=== PATIENT | female | born 1940 | race Caucasian/White ===

== ENCOUNTER → 2018-02-04 | Outpatient (CLI) | payer MEDICARE, OTHER ==
--- NOTE | 2018-02-04 12:38 | MM ---
Reason for exam: screening (asymptomatic). Last mammogram was performed 3 years and 1 month ago. History: Patient is postmenopausal. Benign right US cyst aspiration of the right breast, June 30, 2010. 2 excisional biopsies of the left breast. Excisional biopsy of the right breast. Took estrogen for 23 years. Physical Findings: A clinical breast exam by your physician is recommended on an annual basis and results should be correlated with mammographic findings. MG Screening Mammo w CAD Bilateral CC and MLO view(s) were taken. Prior study comparison: December 21, 2014, bilateral MG screening mammo w CAD. July 21, 2013, bilateral digital screening mammo w/CAD. The breast tissue is heterogeneously dense. This may lower the sensitivity of mammography. No suspicious abnormality. Right biopsy marker noted. ASSESSMENT: Negative, BI-RAD 1 RECOMMENDATION: Routine screening mammogram of both breasts in 1 year.
--- NOTE | 2018-02-04 16:09 | BD ---
EXAMINATION TYPE: Axial Bone Density DATE OF EXAM: 02/04/2018 COMPARISON: 06/15/2003 CLINICAL HISTORY: 77-year-old female postmenopausal screening for osteoporosis Height: 62.5 IN Weight: 154 LBS FRAX RISK QUESTIONS: History of Fracture in Adulthood: YES LT WRIST AGE 73 Secondary Osteoporosis: 3. Menopause before 45: YES AGE 42 RISK FACTORS HISTORY OF: History of Wrist Fracture: YES LT WRIST When: AGE 73 Family History of Osteoporosis: YES SISTERS(2) Active: YES Diet low in dairy products/other sources of calcium: YES Postmenopausal woman: AGE 42 Take estrogen and/or progesterone medications: NOT NOW How long: AGE 41-64 MEDICATIONS: Additional Medications: KLONOPIN, ELAVIL, EXAM MEASUREMENTS: Bone mineral densitometry was performed using the Triton System. Bone mineral density as measured about the Lumbar spine is: ----- L1-L4(G/cm2): 0.980 T Score Values are as follows: ----- L2: -2.8 ----- L3: -0.9 ----- L4: -1.2 ----- L1-L4: -1.7 Bone mineral density has: Decreased -6.4% since study of: 06/15/2003 Bone mineral density about the R hip (g/cm2): 0.743 Bone mineral density about the L hip (g/cm2): 0.745 T Score values are as follows: -----R Neck: -2.1 -----L Neck: -2.1 -----R Total: -2.1 -----L Total: -1.8 Bone mineral density has: Decreased -11.2% since study of: 06/15/2003 IMPRESSION: Osteopenia (T Score between -2.5 and -1). There is slightly increased risk of fracture and the patient may be considered for treatment. Re-Screen 2-5 years. NOTE: T-SCORE=SD OF THE YOUNG ADULT MEAN.
== END | disposition home or self-care (01) ==
LOC: RADMAMWWP 07:21
PROVIDERS: ATTEND Family Medicine
DX: Z12.31 Encounter for screening mammogram for malignant neoplasm of breast (principal); M85.80 Other specified disorders of bone density and structure, unspecified site
CPT/HCPCS: 77067; 77080

== ENCOUNTER 2024-02-13 05:48 | Observation (INO) | payer MEDICARE ==
[2024-02-13 06:01] VITALS: TEMP 98.3
[2024-02-13 06:01] LABS: Glucose,Whole Blood 94 mg/dL (70-110)
[2024-02-13] MEDS: NALOXONE 0.4 MG/ML 1 ML VIAL IVP STA ×2 (06:16→08:53)
[2024-02-13 06:20] LABS: Basophils % (A) 0 %; Eosinophils # (A) 0.4 k/uL (0-0.7); Eosinophils % (A) 4 %; HCT 38.8 % (34.0-46.0); HGB 12.6 gm/dL (11.4-16.0); Lymphocytes # (A) 1.2 k/uL (1.0-4.8); Lymphocytes % (A) 11 %; MCH 33.8 pg (25.0-35.0); MCHC 32.6 g/dL (31.0-37.0); MCV 103.8 fL (80.0-100.0); Macrocytosis Slight; Mean Platelet Volume 7.2; Monocytes # (A) 0.6 k/uL (0-1.0); Monocytes % (A) 5 %; Neutrophils # (A) 8.2 k/uL (1.3-7.7); Neutrophils % (A) 78 %; Platelet Count 216 k/uL (150-450); RBC 3.74 m/uL (3.80-5.40); RDW 12.2 % (11.5-15.5); WBC 10.5 k/uL (3.8-10.6)
[2024-02-13 06:34] LABS: ALT 10 U/L (4-34); AST 21 U/L (14-36); Acetaminophen <10.0 ug/mL; African American GFR (CKD) >90 (>60 ml/min/1.73 sqM); Albumin 4.1 g/dL (3.5-5.0); Alcohol <10 mg/dL; Alkaline Phosphatase 113 U/L (38-126); Anion Gap 6 mmol/L; Blood Urea Nitrogen 11 mg/dL (7-17); Calcium 9.4 mg/dL (8.4-10.2); Carbon Dioxide 24 mmol/L (22-30); Chloride 109 mmol/L (98-107); Glucose 106 mg/dL (74-99); Non-African American GFR(CKD) 83 (>60 ml/min/1.73 sqM); Sodium 139 mmol/L (137-145); Total Bilirubin 0.3 mg/dL (0.2-1.3); Total Protein 6.4 g/dL (6.3-8.2)
--- NOTE | 2024-02-13 06:47 | ED ---
Altered Mental Status HPI - General Chief Complaint: Altered Mental Status Stated Complaint: fall Time Seen by Provider: 02/13/24 05:56 Source: patient, EMS, RN notes reviewed Mode of arrival: EMS Limitations: altered mental status - History of Present Illness Initial Comments: 83-year-old female presents emergency department via EMS chief complaint of c onfusion, lethargy. Patient reportedly had overnight unwitnessed fall noted to have abrasions on the face. Patient unable to provide much information as she is very lethargic only arousable to stimuli. Patient is not noted to be on blood thinners. Patient has had recent foot surgery was placed on pain medications. No extremity injuries are noted information is very limited at this time. - Related Data Home Medications Medication Instructions Recorded Confirmed Amitriptyline HCl [Elavil] 150 mg PO HS 02/13/24 02/13/24 HYDROcodone/APAP 5-325MG [[place] 1 tab PO Q6HR PRN 02/13/24 02/13/24 5-325] Pravastatin Sodium [Pravachol] 20 mg PO HS 02/13/24 02/13/24 clonazePAM [KlonoPIN] 0.5 mg PO BID 02/13/24 02/13/24 Previous Rx's Medication Instructions Recorded Famotidine [Pepcid] 20 mg PO BID #30 tablet 02/13/24 Naproxen [Naprosyn] 375 mg PO Q12HR PRN #30 tablet 02/13/24 Allergies Allergy/AdvReac Type Severity Reaction Status Date / Time Penicillins Allergy Unknown Verified 02/13/24 11:45 Review of Systems ROS Statement: Those systems with pertinent positive or pertinent negative responses have been documented in the HPI. ROS Other: All systems not noted in ROS Statement are negative. Past Medical History Past Medical History: Hyperlipidemia History of Any Multi-Drug Resistant Organisms: None Reported Additional Past Surgical History / Comment(s): straightening right toe 02/11/24 Past Psychological History: No Psychological Hx Reported Smoking Status: Unknown if ever smoked General Exam General appearance: alert, in no apparent distress Head exam: Present: atraumatic, normocephalic, normal inspection Eye exam: Present: PERRL, EOMI. Absent: normal appearance ([place]), scleral icterus, conjunctival injection, periorbital swelling Pupils: Present: miosis ENT exam: Present: normal exam, mucous membranes moist Neck exam: Present: normal inspection. Absent: tenderness, meningismus, lymphadenopathy Respiratory exam: Present: normal lung sounds bilaterally, other (Decreased respirations). Absent: respiratory distress, wheezes, rales, rhonchi, stridor Cardiovascular Exam: Present: regular rate, normal rhythm, normal heart sounds. Absent: systolic murmur, diastolic murmur, rubs, gallop, clicks GI/Abdominal exam: Present: soft, normal bowel sounds. Absent: distended, tenderness, guarding, rebound, rigid Neurological exam: Present: alert. Absent: oriented X3 Skin exam: Present: warm, dry, intact, normal color. Absent: rash Course Vital Signs 02/13/24 02/13/24 02/13/24 05:49 06:16 07:16 Temperature 98.3 F Pulse Rate 73 68 Respiratory 16 10 L 16 Rate Blood Pressure 187/89 165/77 O2 Sat by Pulse 95 94 L Oximetry 02/13/24 02/13/24 02/13/24 07:45 08:15 08:30 Temperature Pulse Rate 62 65 65 Respiratory 15 16 12 Rate Blood Pressure 110/54 120/63 120/63 O2 Sat by Pulse 93 L 94 L 94 L Oximetry 02/13/24 02/13/24 02/13/24 08:53 09:15 10:00 Temperature Pulse Rate 73 70 Respiratory 14 15 13 Rate Blood Pressure 168/86 136/70 O2 Sat by Pulse 95 95 Oximetry 02/13/24 02/13/24 02/13/24 10:45 11:00 12:00 Temperature Pulse Rate 65 69 65 Respiratory 12 18 18 Rate Blood Pressure 138/71 138/71 155/78 O2 Sat by Pulse 95 97 97 Oximetry 02/13/24 02/13/24 13:00 14:00 Temperature Pulse Rate 75 76 Respiratory 18 18 Rate Blood Pressure 116/47 133/61 O2 Sat by Pulse 97 96 Oximetry Medical Decision Making - Medical Decision Making Was pt. sent in by a medical professional or institution (, PA, SPICE ROOM WORKER, urgent care, hospital, or correction...) When possible be specific @ -No Did you speak to anyone other than the patient for history (EMS, parent, family, police, friend...)? What history was obtained from this source @ - Family providing past medical history Did you review nursing and triage notes (agree or disagree)? Why? @ -I reviewed and agree with nursing and triage notes Were old charts reviewed (outside hosp., previous admission, EMS record, old EKG, old radiological studies, urgent care reports/EKG's, correction records)? Report findings @ -No old charts were reviewed Differential Diagnosis (chest pain, altered mental status, abdominal pain women, abdominal pain men, vaginal bleeding, weakness, fever, dyspnea, syncope, headache, dizziness, GI bleed, back pain, seizure, CVA, palpatations, mental health, musculoskeletal)? @ -Differential Altered Mental Status: Hypoglycemia, DKA, hypercapnia, ETOH, overdose, CO poisoning, trauma, myxedema coma, HTN encephalopathy, infection, encephalitis, psychosis, intercranial hemorrhage, hepatic encephalopathy, meningitis, CVA, this is not meant to be an all-inclusive list EKG interpreted by me (3pts min.). @ -As above X-rays interpreted by me (1pt min.). @ -Chest x-ray shows no acute process CT interpreted by me (1pt min.). @ -CT brain showed no acute intracranial hemorrhage or mass effect U/S interpreted by me (1pt. min.). @ -None done What testing was considered but not performed or refused? (CT, X-rays, U/S, labs)? Why? @ -None What meds were considered but not given or refused? Why? @ -None Did you discuss the management of the patient with other professionals (professionals i.e. , PA, SPICE ROOM WORKER, lab, RT, psych nurse, social media manager, warehouse shipping receiving clerk, teacher, consumer loan officer, embedded case manager)? Give summary @ -EM for admission Was smoking cessation discussed for >3mins.? @ -No Was critical care preformed (if so, how long)? @ -No Were there social determinants of health that impacted care today? How? (Homelessness, low income, unemployed, alcoholism, drug addiction, transportation, low edu. Level, literacy, decrease access to med. care, penitentiary, rehab)? @ -No Was there de-escalation of care discussed even if they declined (Discuss DNR or withdrawal of care, Hospice)? DNR status @ -No What co-morbidities impacted this encounter? (DM, HTN, Smoking, COPD, CAD, Cancer, CVA, ARF, Chemo, Hep., AIDS, mental health diagnosis, sleep apnea, morb id obesity)? @ -None Was patient admitted / discharged? Hospital course, mention meds given and rout e, prescriptions, significant lab abnormalities, going to OR and other pertinent info. @ -Admitted patient presented for altered mental status. Patient did arouse after Narcan but still has some confusion. Patient was admitted for further observation and evaluation. Undiagnosed new problem with uncertain prognosis? @ -No Drug Therapy requiring intensive monitoring for toxicity (Heparin, Nitro, I nsulin, Cardizem)? @ -No Were any procedures done? @ -No Diagnosis/symptom? @ -Drug overdose, altered mental status Acute, or Chronic, or Acute on Chronic? @ -Acute Uncomplicated (without systemic symptoms) or Complicated (systemic symptoms)? @ -Complicated Side effects of treatment? @ -No Exacerbation, Progression, or Severe Exacerbation? @ -No Poses a threat to life or bodily function? How? (Chest pain, [place], [place], pneumonia, PE, COPD, DKA, ARF, appy, cholecystitis, CVA, Diverticulitis, Homicidal, Suicidal, threat to staff... and all critical care pts) @ -No - Lab Data Result diagrams: 02/13/24 06:06 02/13/24 06:06 Lab Results 02/13/24 02/13/24 02/13/24 Range/Units 06:00 06:06 06:06 WBC 10.5 (3.8-10.6) k/uL RBC 3.74 L (3.80-5.40) m/uL Hgb 12.6 (11.4-16.0) gm/dL Hct 38.8 (34.0-46.0) % MCV 103.8 H (80.0-100.0) fL MCH 33.8 (25.0-35.0) pg MCHC 32.6 (31.0-37.0) g/dL RDW 12.2 (11.5-15.5) % Plt Count 216 (150-450) k/uL MPV 7.2 Neutrophils % 78 % Lymphocytes % 11 % Monocytes % 5 % Eosinophils % 4 % Basophils % 0 % Neutrophils # 8.2 H (1.3-7.7) k/uL Lymphocytes # 1.2 (1.0-4.8) k/uL Monocytes # 0.6 (0-1.0) k/uL Eosinophils # 0.4 (0-0.7) k/uL Basophils # 0.0 (0-0.2) k/uL Macrocytosis Slight PT 10.0 (10.0-12.5) sec INR 0.9 (<1.2) APTT 24.3 (22.0-30.0) sec Sodium (137-145) mmol/L Potassium (3.5-5.1) mmol/L Chloride (98-107) mmol/L Carbon Dioxide (22-30) mmol/L Anion Gap mmol/L BUN (7-17) mg/dL Creatinine (0.52-1.04) mg/dL Est GFR (CKD-EPI)AfAm (>60 ml/min/1.73 sqM) Est GFR (CKD-EPI)NonAf (>60 ml/min/1.73 sqM) Glucose (74-99) mg/dL POC Glucose (mg/dL) 94 (70-110) mg/dL POC Glu Team Lead ID Terence, Mamta Calcium (8.4-10.2) mg/dL Magnesium (1.6-2.3) mg/dL Total Bilirubin (0.2-1.3) mg/dL AST (14-36) U/L ALT (4-34) U/L Alkaline Phosphatase (38-126) U/L Ammonia (<30) umol/L Troponin I (0.000-0.034) ng/mL Total Protein (6.3-8.2) g/dL Albumin (3.5-5.0) g/dL Urine Color Urine Appearance (Clear) Urine pH (5.0-8.0) Ur Specific [place] (1.001-1.035) Urine Protein (Negative) Urine Glucose (UA) (Negative) Urine Ketones (Negative) Urine Blood (Negative) Urine Nitrite (Negative) Urine Bilirubin (Negative) Urine Urobilinogen (<2.0) mg/dL Ur Leukocyte Esterase (Negative) Acetaminophen ug/mL Serum Alcohol mg/dL 02/13/24 02/13/24 02/13/24 Range/Units 06:06 06:06 06:06 WBC (3.8-10.6) k/uL RBC (3.80-5.40) m/uL Hgb (11.4-16.0) gm/dL Hct (34.0-46.0) % MCV (80.0-100.0) fL MCH (25.0-35.0) pg MCHC (31.0-37.0) g/dL RDW (11.5-15.5) % Plt Count (150-450) k/uL MPV Neutrophils % % Lymphocytes % % Monocytes % % Eosinophils % % Basophils % % Neutrophils # (1.3-7.7) k/uL Lymphocytes # (1.0-4.8) k/uL Monocytes # (0-1.0) k/uL Eosinophils # (0-0.7) k/uL Basophils # (0-0.2) k/uL Macrocytosis PT (10.0-12.5) sec INR (<1.2) APTT (22.0-30.0) sec Sodium 139 (137-145) mmol/L Potassium 4.0 (3.5-5.1) mmol/L Chloride 109 H (98-107) mmol/L Carbon Dioxide 24 (22-30) mmol/L Anion Gap 6 mmol/L BUN 11 (7-17) mg/dL Creatinine 0.65 (0.52-1.04) mg/dL Est GFR (CKD-EPI)AfAm >90 (>60 ml/min/1.73 sqM) Est GFR (CKD-EPI)NonAf 83 (>60 ml/min/1.73 sqM) Glucose 106 H (74-99) mg/dL POC Glucose (mg/dL) (70-110) mg/dL POC Glu Team Lead ID Calcium 9.4 (8.4-10.2) mg/dL Magnesium 2.0 (1.6-2.3) mg/dL Total Bilirubin 0.3 (0.2-1.3) mg/dL AST 21 (14-36) U/L ALT 10 (4-34) U/L Alkaline Phosphatase 113 (38-126) U/L Ammonia <9 (<30) umol/L Troponin I <0.012 (0.000-0.034) ng/mL Total Protein 6.4 (6.3-8.2) g/dL Albumin 4.1 (3.5-5.0) g/dL Urine Color Urine Appearance (Clear) Urine pH (5.0-8.0) Ur Specific [place] (1.001-1.035) Urine Protein (Negative) Urine Glucose (UA) (Negative) Urine Ketones (Negative) Urine Blood (Negative) Urine Nitrite (Negative) Urine Bilirubin (Negative) Urine Urobilinogen (<2.0) mg/dL Ur Leukocyte Esterase (Negative) Acetaminophen <10.0 ug/mL Serum Alcohol <10 mg/dL 02/13/24 Range/Units 09:19 WBC (3.8-10.6) k/uL RBC (3.80-5.40) m/uL Hgb (11.4-16.0) gm/dL Hct (34.0-46.0) % MCV (80.0-100.0) fL MCH (25.0-35.0) pg MCHC (31.0-37.0) g/dL RDW (11.5-15.5) % Plt Count (150-450) k/uL MPV Neutrophils % % Lymphocytes % % Monocytes % % Eosinophils % % Basophils % % Neutrophils # (1.3-7.7) k/uL Lymphocytes # (1.0-4.8) k/uL Monocytes # (0-1.0) k/uL Eosinophils # (0-0.7) k/uL Basophils # (0-0.2) k/uL Macrocytosis PT (10.0-12.5) sec INR (<1.2) APTT (22.0-30.0) sec Sodium (137-145) mmol/L Potassium (3.5-5.1) mmol/L Chloride (98-107) mmol/L Carbon Dioxide (22-30) mmol/L Anion Gap mmol/L BUN (7-17) mg/dL Creatinine (0.52-1.04) mg/dL Est GFR (CKD-EPI)AfAm (>60 ml/min/1.73 sqM) Est GFR (CKD-EPI)NonAf (>60 ml/min/1.73 sqM) Glucose (74-99) mg/dL POC Glucose (mg/dL) (70-110) mg/dL POC Glu Team Lead ID Calcium (8.4-10.2) mg/dL Magnesium (1.6-2.3) mg/dL Total Bilirubin (0.2-1.3) mg/dL AST (14-36) U/L ALT (4-34) U/L Alkaline Phosphatase (38-126) U/L Ammonia (<30) umol/L Troponin I (0.000-0.034) ng/mL Total Protein (6.3-8.2) g/dL Albumin (3.5-5.0) g/dL Urine Color Colorless Urine Appearance Clear (Clear) Urine pH 6.0 (5.0-8.0) Ur Specific [place] 1.009 (1.001-1.035) Urine Protein Negative (Negative) Urine Glucose (UA) Negative (Negative) Urine Ketones Negative (Negative) Urine Blood Negative (Negative) Urine Nitrite Negative (Negative) Urine Bilirubin Negative (Negative) Urine Urobilinogen <2.0 (<2.0) mg/dL Ur Leukocyte Esterase Negative (Negative) Acetaminophen ug/mL Serum Alcohol mg/dL - EKG Data -: EKG Interpreted by [facility] EKG Comments: EKG performed at 5: 55 sinus rhythm rate of 75 [place] 189 QRS 113 QT/QTc 373/402 Disposition Clinical Impression: Altered mental status, Medication overdose, Weakness Disposition: ADMITTED IP TO THIS HOSP Condition: Poor Time of Disposition: 10:48
[2024-02-13 06:54] LABS: INR 0.9 (<1.2); Partial Thromboplastin Time 24.3 sec (22.0-30.0)
--- NOTE | 2024-02-13 08:19 | CT ---
EXAMINATION TYPE: CT brain alcon leon con DATE OF EXAM: 02/13/2024 COMPARISON: None HISTORY: Fall, AMS CT DLP: 1305.7 mGycm Automated exposure control for dose reduction was used. TECHNIQUE: CT scan of the head and cervical spine are performed without contrast. FINDINGS: Moderate degenerative change of low attenuation in the white matter most remote microvasc ular. Orbits are symmetric. Calvarium intact. Craniocervical junction maintained. No acute hemorrhage or mass effect. Artifact limits the exam. Intracranial atherosclerotic changes most marked cavernous segment bilateral ICA. Calcification of the basal ganglia. Assessment of the spinal canal limited due to artifact and resolution. Odontoid grossly intact with s evere degenerative change of the atlantoaxial joint. Small posterior pannus. There is multilevel mode rate to severe degenerative disc disease and facet arthropathy. Foraminal encroachment level C4-C7. C ould not exclude canal stenosis. Assessment for disc herniation limited. No acute fracture. Apical pl eural scarring. IMPRESSION: 1. There is no acute fracture or dislocation evident in the cervical spine. 2. No acute intracranial hemorrhage, mass effect, or midline shift is seen.
--- NOTE | 2024-02-13 08:42 | XR ---
EXAMINATION TYPE: XR chest 2V DATE OF EXAM: 02/13/2024 COMPARISON: NONE TECHNIQUE: PA and lateral views submitted. HISTORY: Altered mental status FINDINGS: . Generalized demineralization. Shoulder arthropathy. 5 lateral perihilar subsegmental consolidation. Underlying emphysematous changes. No sizable pleural effusion or pneumothorax. Degenerative changes of the spine. IMPRESSION: 1. Bilateral subsegmental atelectasis or infiltrate correlate clinically.
[2024-02-13 10:27] LABS: Appearance,Urine Clear (Clear); Bilirubin,Urine Negative (Negative); Blood,Urine Negative (Negative); Color,Urine Colorless; Glucose,Urine (UA) Negative (Negative); Ketones,Urine Negative (Negative); Leukocyte Esterase,Urine Negative (Negative); Nitrite,Urine Negative (Negative); Protein,Urine Negative (Negative); Specific Gravity,Urine 1.009 (1.001-1.035); Urobilinogen,Urine <2.0 mg/dL (<2.0)
[2024-02-13] MEDS ORDERED: NALOXONE 0.4 MG/ML 1 ML VIAL IV PRN (10:48)
[2024-02-13] MEDS ORDERED: ONDANSETRON 4 MG/2 ML VIAL IVP PRN (10:48)
[2024-02-13 11:51] VITALS: RESP 18
[2024-02-13] MEDS: SODIUM CHLORIDE 0.9% 1,000 ML IV SCH (11:59)
--- NOTE | 2024-02-13 14:24 | P.DS ---
Providers Date of admission: 02/13/24 10:43 Attending physician: Jaclyn Sheehan Primary care physician: Hemalatha Ernandez [facility] Course: Patient 83-year-old female came in because of confusion and lethargy which started today morning. Although workup is negative including septic workup patient is not dehydrated patient does not have any focal weakness patient had a foot surgery few days ago and patient was started on [place] and patient took a total of 4 [place]'s in less than 24 hours which is 5 mg patient also takes amitriptyline and Ativan at home. Patient's symptoms completely resolved at this time and wanted to go home. REVIEW OF SYSTEMS: All other systems are negative except those mentioned in the HPI PHYSICAL EXAMINATION: GENERAL: The patient is alert and oriented x3, not in any acute distress. Well developed, well nourished. HEENT: Pupils are round and equally reacting to light. EOMI. No scleral icterus. No conjunctival pallor. Normocephalic, atraumatic. No pharyngeal erythema. No thyromegaly. CARDIOVASCULAR: S1 and S2 present. No murmurs, rubs, or gallops. PULMONARY: Chest is clear to auscultation, no wheezing or crackles. ABDOMEN: Soft, nontender, nondistended, normoactive bowel sounds. No palpable organomegaly. MUSCULOSKELETAL: No joint swelling or deformity. EXTREMITIES: No cyanosis, clubbing, or pedal edema. Patient has a right foot ulcer postsurgically packed NEUROLOGICAL: Gross neurological examination did not reveal any focal deficits. SKIN: No rashes. Assessment and plan -Altered mental status secondary to toxic encephalopathy from medications including [place] amitriptyline and Ativan her symptoms resolved. Patient can continue [place] and other medications but I asked her to limit her [place], prescription for nonsteroidal anti-inflammatory medications will be provided along with Pepcid for pain. -Hyperlipidemia -Recent foot surgery -Peripheral neuropathy Patient will be discharged today Patient Condition at Discharge: Poor Plan - Discharge Summary New Discharge Prescriptions: New Famotidine [Pepcid] 20 mg PO BID #30 tablet Naproxen [Naprosyn] 375 mg PO Q12HR PRN #30 tablet PRN Reason: Pain Continue clonazePAM [KlonoPIN] 0.5 mg PO BID Pravastatin Sodium [Pravachol] 20 mg PO HS HYDROcodone/APAP 5-325MG [[place] 5-325] 1 tab PO Q6HR PRN PRN Reason: Pain Amitriptyline HCl [Elavil] 150 mg PO HS Discharge Medication List Amitriptyline HCl [Elavil] 150 mg PO HS 02/13/24 [History] Famotidine [Pepcid] 20 mg PO BID #30 tablet 02/13/24 [Rx] HYDROcodone/APAP 5-325MG [[place] 5-325] 1 tab PO Q6HR PRN 02/13/24 [History] Naproxen [Naprosyn] 375 mg PO Q12HR PRN #30 tablet 02/13/24 [Rx] Pravastatin Sodium [Pravachol] 20 mg PO HS 02/13/24 [History] clonazePAM [KlonoPIN] 0.5 mg PO BID 02/13/24 [History] Follow up Appointment(s)/Referral(s): Hemalatha Ernandez DO [Primary Care Provider] - 3 Days Patient Instructions/Handouts: Altered Mental Status (ED) Discharge Disposition: HOME SELF-CARE
--- NOTE | 2024-02-13 14:24 | P.HPIM ---
History of Present Illness Patient 83-year-old female came in because of confusion and lethargy which started today morning. Although workup is negative including septic workup patient is not dehydrated patient does not have any focal weakness patient had a foot surgery few days ago and patient was started on [place] and patient took a total of 4 [place]'s in less than 24 hours which is 5 mg patient also takes amitriptyline and Ativan at home. Patient's symptoms completely resolved at this time and wanted to go home. REVIEW OF SYSTEMS: All other systems are negative except those mentioned in the HPI PHYSICAL EXAMINATION: GENERAL: The patient is alert and oriented x3, not in any acute distress. Well developed, well nourished. HEENT: Pupils are round and equally reacting to light. EOMI. No scleral icterus. No conjunctival pallor. Normocephalic, atraumatic. No pharyngeal erythema. No thyromegaly. CARDIOVASCULAR: S1 and S2 present. No murmurs, rubs, or gallops. PULMONARY: Chest is clear to auscultation, no wheezing or crackles. ABDOMEN: Soft, nontender, nondistended, normoactive bowel sounds. No palpable organomegaly. MUSCULOSKELETAL: No joint swelling or deformity. EXTREMITIES: No cyanosis, clubbing, or pedal edema. Patient has a right foot ulcer postsurgically packed NEUROLOGICAL: Gross neurological examination did not reveal any focal deficits. SKIN: No rashes. Assessment and plan -Altered mental status secondary to toxic encephalopathy from medications including Rom[place] amitriptyline and Ativan her symptoms resolved. Patient can continue Romance and other medications but I asked her to limit her [place], prescription for nonsteroidal anti-inflammatory medications will be provided along with Pepcid for pain. -Hyperlipidemia -Recent foot surgery -Peripheral neuropathy Patient will be discharged today Past Medical History Past Medical History: Hyperlipidemia History of Any Multi-Drug Resistant Organisms: None Reported Additional Past Surgical History / Comment(s): straightening right toe 02/11/24 Past Psychological History: No Psychological Hx Reported Smoking Status: Unknown if ever smoked Medications and Allergies Home Medications Medication Instructions Recorded Confirmed Type Amitriptyline HCl [Elavil] 150 mg PO HS 02/13/24 02/13/24 History Famotidine [Pepcid] 20 mg PO BID #30 tablet 02/13/24 Rx HYDROcodone/APAP 5-325MG [[place] 1 tab PO Q6HR PRN 02/13/24 02/13/24 History 5-325] Naproxen [Naprosyn] 375 mg PO Q12HR PRN #30 tablet 02/13/24 Rx Pravastatin Sodium [Pravachol] 20 mg PO HS 02/13/24 02/13/24 History clonazePAM [KlonoPIN] 0.5 mg PO BID 02/13/24 02/13/24 History Allergies Allergy/AdvReac Type Severity Reaction Status Date / Time Penicillins Allergy Unknown Verified 02/13/24 11:45 Physical Exam Vitals: Vital Signs Temp Pulse Resp BP Pulse Ox 02/13/24 13:00 75 18 116/47 97 02/13/24 12:00 65 18 155/78 97 02/13/24 11:00 69 18 138/71 97 02/13/24 10:45 65 12 138/71 95 02/13/24 10:00 70 13 136/70 95 02/13/24 09:15 73 15 168/86 95 02/13/24 08:53 14 02/13/24 08:30 65 12 120/63 94 L 02/13/24 08:15 65 16 120/63 94 L 02/13/24 07:45 62 15 110/54 93 L 02/13/24 07:16 68 16 165/77 94 L 02/13/24 06:16 10 L 02/13/24 05:49 98.3 F 73 16 187/89 95 Intake and Output 02/12/24 02/13/24 02/13/24 22:59 06:59 14:59 Other: Weight 64.41 kg Results CBC & Chem 7: 02/13/24 06:06 02/13/24 06:06 Labs: Abnormal Lab Results - Last 24 Hours (Table) 02/13/24 02/13/24 Range/Units 06:06 06:06 RBC 3.74 L (3.80-5.40) m/uL MCV 103.8 H (80.0-100.0) fL Neutrophils # 8.2 H (1.3-7.7) k/uL Chloride 109 H (98-107) mmol/L Glucose 106 H (74-99) mg/dL
[2024-02-13 14:43] VITALS: BP 133/61; PULSE 76
== END 2024-02-13 14:43 | disposition home or self-care (01) ==
LOC: SUPCPDRO 05:48 → EC 05:48 → 6NMEDSUR 10:43
PROVIDERS: ADMIT Hospitalist; ATTEND Hospitalist
DX: T40.2X1A Poisoning by other opioids, accidental (unintentional), initial encounter (principal); T42.4X1A Poisoning by benzodiazepines, accidental (unintentional), initial encounter; G92.8 Other toxic encephalopathy; S00.81XA Abrasion of other part of head, initial encounter; W19.XXXA Unspecified fall, initial encounter; G62.9 Polyneuropathy, unspecified; E78.5 Hyperlipidemia, unspecified; Z79.899 Other long term (current) drug therapy; Z88.0 Allergy status to penicillin; Z98.890 Other specified postprocedural states
CPT/HCPCS: 96376; 96361; 96374; 99285; 36415; 93005; 80053; 82140; 83735; 84484; 85025; 85610; 85730; 81003; 80143; 80320; 71046; 72125; 70450; G0378; J2310

== ENCOUNTER → 2024-03-31 | Outpatient (CLI) | payer MEDICARE ==
--- NOTE | 2024-03-31 13:38 | US ---
EXAMINATION TYPE: US carotid duplex BILAT DATE OF EXAM: 03/31/2024 COMPARISON: 11/04/10 CLINICAL INDICATION: Female, 83 years old with history of I65.23 OCCLUSION AND STENOSIS OF BILATERAL CAROTID; stenosis TECHNIQUE: Carotid duplex ultrasound examination. Indirect Doppler criteria was utilized. FINDINGS: EXAM MEASUREMENTS: RIGHT: Peak Systolic Velocity (PSV) cm/sec ----- Right CCA: 52.9 ----- Right ICA: 117.2 ----- Right ECA: 406.8 ICA/CCA ratio: 2.2 RIGHT: End Diastole cm/sec ----- Right CCA: 18.0 ----- Right ICA: 39.1 ----- Right ECA: 148.0 LEFT: Peak Systolic Velocity (PSV) cm/sec ----- Left CCA: 56.7 ----- Left ICA: 263.8 ----- Left ECA: 536.0 ICA/CCA ratio: 4.7 LEFT: End Diastole cm/sec ----- Left CCA: 27.0 ----- Left ICA: 66.6 ----- Left ECA: 138.5 VERTEBRALS (direction of flow): Right Vertebral: Antegrade Left Vertebral: Antegrade Rhythm: Normal TAPPER BALANCE WHEEL SCREW HOLE NOTES: Moderate to severe plaque seen in bilateral bulbs and prox ICA's. Significanly duran vated velocities seen in bilateral ECA's and the left prox ICA IMPRESSION: 1. Greater than 70% stenosis to near occlusion at the origin of the left internal carotid artery sec ondary to absence carotid plaque. 2. Approximately 50-69% stenosis at the origin of the right internal carotid artery secondary to ath erosclerotic plaque. 3. High-grade stenosis at the origins of the bilateral ECA. Criteria for Assigning % of Stenosis / Diameter reduction (Estimation based on the indirect measurements of the internal carotid artery velocities (ICA PSV). 1. Normal (no stenosis)=ICA PSV < 125 cm/s: ratio < 2.0: ICA EDV<40 cm/s. 2. Less than 50% stenosis=ICA PSV < 125 cm/s: ratio < 2.0: ICA EDV<40 cm/s. 3. 50 to 69% stenosis=ICA PSV of 125 to 230 cm/s: ration 2.0 ? 4.0: ICA EDV 40-100 cm/s. 4. Greater than 70% stenosis to near occlusion= ICA PSV > 230 cm/s: ratio > 4.0: ICA EDV > 100 cm/s. 5. Near occlusion= ICA PSV velocities may be low or undetectable: variable ratio and ICA EDV. 6. Total occlusion=unable to detect flow.
== END | disposition home or self-care (01) ==
LOC: RADUSWWP 12:52
PROVIDERS: ATTEND Family Medicine
DX: I65.23 Occlusion and stenosis of bilateral carotid arteries
CPT/HCPCS: 93880